=== PATIENT | female | born 1945 | race Caucasian/White ===

== ENCOUNTER 2024-11-15 10:53 | Inpatient (IN) | payer MEDICARE ==
[~2024-11-15] VITALS: Ht 162.6 cm; Wt 64.9 kg
[2024-11-15 11:26] LABS: BASOPHILS % (AUTO) 0.4 % (0.0-2.0); EOSINOPHILS % (AUTO) 0.2 % (0.0-6.0); HEMATOCRIT 33 % (33-45); HEMOGLOBIN 11.3 g/dL (11.5-14.8); LYMPHOCYTES # (AUTO) 0.8 K/uL (0.8-4.8); LYMPHOCYTES % (AUTO) 17.4 % (20.0-44.0); MEAN CORPUSCULAR HEMOGLOBIN 31 PG (26.0-33.0); MEAN CORPUSCULAR HGB CONC 34 g/dl (31.0-36.0); MEAN CORPUSCULAR VOLUME 92 fL (82-100); MONOCYTES # (AUTO) 0.7 K/uL (0.1-1.30); MONOCYTES % (AUTO) 14.4 % (2.0-12.0); NEUTROPHILS # (AUTO) 3.2 K/uL (1.8-8.9); NEUTROPHILS % (AUTO) 67.6 % (43.0-81.0); PLATELET COUNT (AUTO) 158 K/uL (150-450); RED BLOOD CELL COUNT(AUTO) 3.62 MIL/uL (4.0-5.2); RED CELL DISTRIBUTION WIDTH 13.4 % (11.5-15.0); WHITE BLOOD COUNT (AUTO) 4.8 K/uL (4.3-11.0)
[2024-11-15] MEDS ORDERED: CEFTRIAXONE 1GM BAG (ER ONLY) 50 ML IV ONE (11:33)
[2024-11-15] MEDS ORDERED: methylPREDNISolone SOD SUCC 125 MG/2ML VIAL ONE (11:33)
[2024-11-15 11:36] LABS: INR 1.08 (0.91-1.10); PARTIAL THROMBOPLASTIN TIME 30.5 SEC (24.3-34.3); PROTHROMBIN TIME 11.4 SECS (9.2-11.1)
[2024-11-15 11:37] LABS: CALCIUM, SERUM 8.7 mg/dL (8.5-10.1); CARBON DIOXIDE 23 mmol/L (21-32); CHLORIDE 108 mmol/L (98-107); GLUCOSE 107 mg/dL (74-106); POTASSIUM 3.2 mmol/L (3.5-5.1); SODIUM SERUM 140 mmol/L (136-145); UREA NITROGEN, BLOOD 13 mg/dL (7-18)
[2024-11-15 11:43] LABS: ALANINE AMINOTRANSFERASE 41 U/L (12-78); ALBUMIN 3.1 g/dL (3.4-5.0); ALKALINE PHOSPHATASE 40 U/L (46-116); ASPARTATE AMINOTRANSFERASE 49 U/L (15-37); BILIRUBIN,DIRECT 0.1 mg/dL (0.0-0.2); BILIRUBIN,TOTAL 0.4 mg/dL (0.2-1.0); TOTAL PROTEIN, SERUM 6.2 g/dL (6.4-8.2)
[2024-11-15] MEDS: IV NS 0.9% 1,000 ML BAG IV ONE (11:43)
[2024-11-15] MEDS: CEFTRIAXONE 1GM BAG (ER ONLY) 50 ML IV ONE (11:43)
[2024-11-15] MEDS: methylPREDNISolone SOD SUCC 125 MG/2ML VIAL IV ONE (11:43)
[2024-11-15 11:46] LABS: LACTIC ACID 1.1 mmol/L (0.4-2.0)
[2024-11-15] MEDS ORDERED: IPRATROPIUM NEB FS 0.5 MG/2.5 ML AMPUL.NEB ONE (12:03)
[2024-11-15] MEDS ORDERED: ALBUTEROL FS 2.5 MG/3 ML VIAL.NEB ONE (12:03)
[2024-11-15] MEDS ORDERED: DONE5TAB7 PO (12:06)
[2024-11-15] MEDS ORDERED: ALEN70TA80 PO (12:06)
[2024-11-15] MEDS ORDERED: LOSA25TA27 PO (12:06)
[2024-11-15] MEDS ORDERED: CYCL1DRO6 EACHEYE (12:06)
[2024-11-15] MEDS ORDERED: CHOL200059 PO (12:06)
[2024-11-15] MEDS ORDERED: LIDO1ADH82 TP (12:06)
[2024-11-15] MEDS ORDERED: LACT-58 PO (12:06)
[2024-11-15] MEDS ORDERED: ALPR0.255 PO (12:06)
[2024-11-15] MEDS ORDERED: LOPE-195 PO (12:06)
[2024-11-15] MEDS ORDERED: IPRA3AMP23 IH (12:06)
[2024-11-15] MEDS ORDERED: ACET-637 PO (12:06)
[2024-11-15] MEDS ORDERED: ATOR20TA PO (12:06)
[2024-11-15] MEDS ORDERED: MELA10TA7 PO (12:06)
[2024-11-15] MEDS ORDERED: QUET100T PO ×2 (12:06)
[2024-11-15] MEDS ORDERED: SENN-18 PO (12:06)
[2024-11-15] MEDS ORDERED: PANT40TA49 PO (12:06)
[2024-11-15] MEDS: ALBUTEROL FS 2.5 MG/3 ML VIAL.NEB NEB ONE (12:08)
[2024-11-15] MEDS: IPRATROPIUM NEB FS 0.5 MG/2.5 ML AMPUL.NEB NEB ONE (12:08)
[2024-11-15 12:09] VITALS: O2SAT 99
[2024-11-15] MEDS: AZITHROMYCIN 500 MG in IV D5W 250 ML IV ONE (12:29)
[2024-11-15 13:00] VITALS: BP 101/57; TEMP 97.5; O2SAT 97
[2024-11-15] MEDS ORDERED: MAGNESIUM HYDROXIDE 30 ML UDC PO PRN (13:00)
[2024-11-15] MEDS ORDERED: ONDANSETRON HCL/PF 4 MG/2 ML VIAL IVP PRN (13:00)
[2024-11-15] MEDS ORDERED: Z GUARD REMEDY 4 OZ OINT TP PRN (13:00)
[2024-11-15] MEDS ORDERED: MAG HYDROX/AL HYDROX/SIMETH 30 ML UDC PO PRN (13:00)
[2024-11-15] MEDS ORDERED: ZOLPIDEM TARTRATE 5 MG TABLET PO PRN (13:00)
[2024-11-15] MEDS ORDERED: ACETAMINOPHEN 325 MG TABLET PO PRN (13:00)
[2024-11-15 13:09] VITALS: O2SAT 100
[2024-11-15] MEDS: ENOXAPARIN SODIUM 40 MG/0.4 ML DISP.SYRIN SQ SCH (14:04)
[2024-11-15] MEDS ORDERED: HYDROCODONE/APAP 5/325MG TABLET PO PRN (16:00)
[2024-11-15] MEDS: IPRATROPIUM NEB FS 0.5 MG/2.5 ML AMPUL.NEB NEB SCH (17:17)
[2024-11-15] MEDS: ALBUTEROL FS 2.5 MG/3 ML VIAL.NEB NEB SCH (17:17)
[2024-11-15] MEDS ORDERED: SENNOSIDES 8.6 MG TABLET PO PRN (18:00)
[2024-11-15] MEDS ORDERED: CYCLOSPORINE EACHEYE PRN (18:00)
[2024-11-15] MEDS ORDERED: ALPRAZOLAM 0.25 MG TABLET PO PRN (18:00)
[2024-11-15] MEDS ORDERED: LOPERAMIDE HCL (2 MG CAP) 2 MG CAPSULE PO PRN (18:00)
[2024-11-15] MEDS ORDERED: Medication Not On Formulary EA (Melatonin 10 MG) PO PRN (18:00)
[2024-11-15] MEDS ORDERED: Medication Not On Formulary EA (Ipratropium/Albuterol Sulfate (Duoneb 2.5-0.5 Mg/3 Ml So IH SCH (18:00)
[2024-11-15] MEDS ORDERED: ACETAMINOPHEN ES 500 MG TABLET PO PRN (18:00)
[2024-11-15] MEDS ORDERED: ALENDRONATE 70 MG TABLET PO SCH (18:00)
[2024-11-15] MEDS: IV NS 0.9% 1,000 ML IV PRN (19:25)
[2024-11-15 20:16] VITALS: O2SAT 97
[2024-11-15 20:22] VITALS: BP 110/66; TEMP 97.7; O2SAT 97
[2024-11-15] MEDS: methylPREDNISolone SOD SUCC 40 MG/ML VIAL IV SCH (20:27)
[2024-11-15 20:31] VITALS: O2SAT 100
[2024-11-15] MEDS: POTASSIUM CHLORIDE 20 MEQ TAB.PRT.SR PO ONE (21:47)
[2024-11-15] MEDS: QUETIAPINE FUMARATE 100 MG TABLET PO SCH (21:48)
[2024-11-15] MEDS: ATORVASTATIN 10 MG TABLET PO SCH (21:48)
[2024-11-16] VITALS (13 sets, daily range): BP systolic 111–146; BP diastolic 59–100; TEMP 97.4–98.2; O2SAT 94–100
[2024-11-16 07:58] LABS: BASOPHILS % (AUTO) 0.1 % (0.0-2.0); HEMATOCRIT 37 % (33-45); LYMPHOCYTES # (AUTO) 0.8 K/uL (0.8-4.8); LYMPHOCYTES % (AUTO) 10.4 % (20.0-44.0); MEAN CORPUSCULAR HEMOGLOBIN 32 PG (26.0-33.0); MEAN CORPUSCULAR HGB CONC 33 g/dl (31.0-36.0); MEAN CORPUSCULAR VOLUME 96 fL (82-100); MONOCYTES # (AUTO) 0.4 K/uL (0.1-1.30); MONOCYTES % (AUTO) 5.5 % (2.0-12.0); NEUTROPHILS # (AUTO) 6.4 K/uL (1.8-8.9); PLATELET COUNT (AUTO) 164 K/uL (150-450); RED BLOOD CELL COUNT(AUTO) 3.82 MIL/uL (4.0-5.2); RED CELL DISTRIBUTION WIDTH 13.6 % (11.5-15.0); WHITE BLOOD COUNT (AUTO) 7.7 K/uL (4.3-11.0)
[2024-11-16 08:42] LABS: CALCIUM, SERUM 8.6 mg/dL (8.5-10.1); CREATININE 0.8 mg/dL (0.6-1.3); MAGNESIUM 2.1 mg/dL (1.8-2.4); PHOSPHORUS 2.8 mg/dL (2.5-4.9); POTASSIUM 4.3 mmol/L (3.5-5.1)
[2024-11-16] MEDS: PANTOPRAZOLE 40 MG TABLET.DR PO SCH ×2 (09:00→09:31)
[2024-11-16] MEDS: CHOLECALCIFEROL 1,000 UNIT TABLET (VIT D3) PO SCH (09:31)
[2024-11-16] MEDS: DONEPEZIL 5 MG TABLET PO SCH (09:31)
[2024-11-16] MEDS: QUETIAPINE FUMARATE 100 MG TABLET PO SCH (09:31)
[2024-11-16] MEDS: LOSARTAN POTASSIUM 25 MG TABLET PO SCH (09:32)
[2024-11-16] MEDS: AZITHROMYCIN 500 MG in IV D5W 250 ML IV SCH (12:11)
[2024-11-16] MEDS: CEFTRIAXONE 1 G in IV D5W 50 ML IV SCH (12:55)
[2024-11-16] MEDS: LACTOSE-FREE FOOD 237 ML BOTTLE PO SCH (17:00)
[2024-11-17] VITALS (11 sets, daily range): BP systolic 117–150; BP diastolic 73–93; TEMP 97.7–98.5; O2SAT 96–99
[2024-11-17] MEDS ORDERED: LIDOCAINE 5% (PATCH) 1 EA PATCH TP PRN (13:30)
[2024-11-17 13:32] LABS: HEMATOCRIT 36 % (33-45); HEMOGLOBIN 11.8 g/dL (11.5-14.8); LYMPHOCYTES % (AUTO) 5.4 % (20.0-44.0); MEAN CORPUSCULAR HEMOGLOBIN 31 PG (26.0-33.0); MEAN CORPUSCULAR HGB CONC 33 g/dl (31.0-36.0); MEAN CORPUSCULAR VOLUME 93 fL (82-100); MONOCYTES # (AUTO) 0.8 K/uL (0.1-1.30); MONOCYTES % (AUTO) 4.3 % (2.0-12.0); NEUTROPHILS % (AUTO) 90.3 % (43.0-81.0); PLATELET COUNT (AUTO) 178 K/uL (150-450); RED BLOOD CELL COUNT(AUTO) 3.85 MIL/uL (4.0-5.2); RED CELL DISTRIBUTION WIDTH 13.7 % (11.5-15.0); WHITE BLOOD COUNT (AUTO) 17.7 K/uL (4.3-11.0)
[2024-11-17 13:40] LABS: CALCIUM, SERUM 8.3 mg/dL (8.5-10.1); CREATININE 0.9 mg/dL (0.6-1.3); MAGNESIUM 1.9 mg/dL (1.8-2.4); PHOSPHORUS 1.6 mg/dL (2.5-4.9); POTASSIUM 3.5 mmol/L (3.5-5.1)
[2024-11-17] MEDS: K PHOS NEUTRAL 250 MG TABLET PO ONE (17:59)
[2024-11-17] MEDS: ENSURE ENLIVE 237 ML LIQUID (VANILLA) PO SCH (18:46)
[2024-11-18] VITALS (8 sets, daily range): BP systolic 158; BP diastolic 99; TEMP 98.6; O2SAT 96–99
[2024-11-18 07:45] LABS: BASOPHILS % (AUTO) 0.1 % (0.0-2.0); HEMATOCRIT 34 % (33-45); HEMOGLOBIN 11.8 g/dL (11.5-14.8); LYMPHOCYTES # (AUTO) 0.7 K/uL (0.8-4.8); LYMPHOCYTES % (AUTO) 4.5 % (20.0-44.0); MEAN CORPUSCULAR HEMOGLOBIN 32 PG (26.0-33.0); MEAN CORPUSCULAR HGB CONC 34 g/dl (31.0-36.0); MEAN CORPUSCULAR VOLUME 92 fL (82-100); MONOCYTES # (AUTO) 0.8 K/uL (0.1-1.30); MONOCYTES % (AUTO) 5.1 % (2.0-12.0); NEUTROPHILS # (AUTO) 13.5 K/uL (1.8-8.9); NEUTROPHILS % (AUTO) 90.3 % (43.0-81.0); PLATELET COUNT (AUTO) 185 K/uL (150-450); RED BLOOD CELL COUNT(AUTO) 3.74 MIL/uL (4.0-5.2); RED CELL DISTRIBUTION WIDTH 13.5 % (11.5-15.0); WHITE BLOOD COUNT (AUTO) 14.9 K/uL (4.3-11.0)
[2024-11-18 07:53] LABS: CALCIUM, SERUM 8.3 mg/dL (8.5-10.1); CREATININE 0.8 mg/dL (0.6-1.3); MAGNESIUM 2.1 mg/dL (1.8-2.4); PHOSPHORUS 2.3 mg/dL (2.5-4.9); POTASSIUM 3.6 mmol/L (3.5-5.1)
[2024-11-18] MEDS ORDERED: METH4TAB17 PO (11:20)
[2024-11-18] MEDS ORDERED: AMOX-427 PO (11:20)
[2024-11-18] MEDS ORDERED: K PHOS NEUTRAL 250 MG TABLET PO ONE (16:30)
== END 2024-11-18 17:43 | DRG 190 ==
LOC: ER 11:04 → TELE 11:29 → MED 11-17 14:57
PROVIDERS: ADMIT Student in an Organized Health Care Education/Training Program; ATTEND Student in an Organized Health Care Education/Training Program
DX: J44.1 Chronic obstructive pulmonary disease with (acute) exacerbation (principal); J96.01 Acute respiratory failure with hypoxia; E44.1 Mild protein-calorie malnutrition; J20.9 Acute bronchitis, unspecified; J44.0 Chronic obstructive pulmonary disease with (acute) lower respiratory infection; F03.90 Unspecified dementia, unspecified severity, without behavioral disturbance, psychotic disturbance, mood disturbance, and anxiety; E87.6 Hypokalemia; I10 Essential (primary) hypertension; E78.5 Hyperlipidemia, unspecified; Z79.899 Other long term (current) drug therapy; Z87.891 Personal history of nicotine dependence; Z88.8 Allergy status to other drugs, medicaments and biological substances; Z91.011 Allergy to milk products; Z79.51 Long term (current) use of inhaled steroids; Z79.83 Long term (current) use of bisphosphonates; D64.9 Anemia, unspecified; R47.02 Dysphasia
CPT/HCPCS: 36415; 71045-TC; 80048-TC; 80076-TC; 83605-TC; 83735-TC; 84100-TC; 84484-TC; 85025-TC; 85730-TC; 87040-TC; 92526; 92611-TC; 94760-TC; 94799-TC; A4223; G0378; J0456; J0696; J1650; J2919; J7030; J7060